=== PATIENT | female | born 1970 ===

== ENCOUNTER 2017-06-22 12:57 | Emergency (ER) | payer SELFPAY ==
[2017-06-22] MEDS ORDERED: NACL 0.9% 1000 ML 0 ML ONE (13:08)
[2017-06-22] MEDS ORDERED: ZOFRAN ONE (13:08)
== END 2017-06-22 14:25 | disposition left against medical advice (07) ==
LOC: ED 12:57
DX: M54.9 Dorsalgia, unspecified (principal); Z53.21 Procedure and treatment not carried out due to patient leaving prior to being seen by health care provider
CPT/HCPCS: J2405; J7030